=== PATIENT | male | born 1985 | race Caucasian/White ===

== ENCOUNTER 2020-01-11 18:57 | Emergency (ER) | payer BC, SELFPAY ==
[2020-01-11 18:58] VITALS: BP 105/66; PULSE 53; RESP 18; TEMP 36.2; O2SAT 100
[2020-01-11] MEDS: TETANUS,DIPHTHERIA,AC PERTUSSIS ADULT (0.5 ML) BOOSTRIX IM (19:30)
[2020-01-11] MEDS: LIDOCAINE HCL 1% LOCAL INJ 20 ML VIAL (19:48)
--- NOTE | 2020-01-11 19:51 | ED.WOUNDLAC ---
HPI - Wound/Laceration General Chief Complaint: Wound/Laceration Stated Complaint: Busted my finger up Time Seen by Provider: 01/11/20 19:20 Source: patient Mode of arrival: ambulatory Limitations: no limitations History of Present Illness HPI narrative: Patient is a 34-year-old male who presents to emergency department for evaluation of laceration of the right thumb patient was using sheet-metal when he lacerated the thumb patient notes his tetanus is not up-to-date patient notes mild aching pain worse with touch and activity. Related Data Allergies Allergy/AdvReac Type Severity Reaction Status Date / Time amoxicillin Allergy Mild unknown Verified 10/21/18 11:23 Review of Systems Review of Systems: Narrative: CONSTITUTIONAL: Denies fever, chills, or sweats. SKIN: Positive for laceration MUSCULOSKELETAL: Denies decreased range of motion or strength NEUROLOGIC: Denies numbness or tingling PMFSH Social History Social History (Updated 01/11/20 @ 19:53 by Jethro Larson PA-C) Smoking status: Never smoker Exam Narrative: Exam Narrative: GENERAL: Well-appearing, well-nourished, and in no acute distress. HEAD: Normocephalic, atraumatic. EYES: PERRLA and EOMI. ENT: Nares clear, no rhinorrhea or epistaxis. Mucous membranes moist. EXTREMITIES: Normal range of motion. No edema. SKIN: Warm, dry, no rash. 2 cm laceration of the right thumb dorsal surface superficial and linear NEURO: No focal deficits. Alert and oriented x3. Neurovascularly intact PSYCH: Normal mood and affect. Course Course Emergency Course: Patient in the room in no distress aware of case findings treatment plan and diagnosis Vital Signs Vital signs: Vital Signs Temperature 97.1 F L 01/11/20 18:58 Pulse Rate 53 L 01/11/20 18:58 Respiratory Rate 18 01/11/20 18:58 Blood Pressure 105/66 01/11/20 18:58 Pulse Oximetry 100 01/11/20 18:58 Temperature 97.1 F L 01/11/20 18:58 Pulse Rate 53 L 01/11/20 18:58 Respiratory Rate 18 01/11/20 18:58 Blood Pressure 105/66 01/11/20 18:58 Pulse Oximetry 100 01/11/20 18:58 Procedures Laceration Laceration 1: Date: 01/11/20 Time: 19:54 Site: upper extremity Side (If applicable): right Size (cm): 2 Description: linear Depth: simple, single layer Local Anesthetic: lidocaine 1% Pre-repair: wound explored, irrigated and irrigated extensively ====== Skin Level ====== Skin layer closed with: nylon Size (cm): 4-0 Number of sutures: 4 ====== Subcutaneous Layer ====== ====== Muscle Layer ====== ====== Tendon Layer ====== MDM - Wound/Laceration MDM Narrative Medical decision making narrative: Patients injury or pain is consistent with musculoskeletal etiology. No signs of neurological or vascular compromise on exam. Compartments and tisues are soft without signs of compartment syndrome. Pain is felt appropriate for further evaluation on an outpatient basis. Discharge Plan Discharge Clinical Impression: Laceration Patient Disposition: Home, Self-Care Condition: Stable Instructions: Antibiotic Form, Laceration (ED) Additional Instructions: Keep wound clean and dry. Do not soak, take baths, or swim until wound is completely healed. If any signs of infection such as redness, swelling, increasing pain, drainage of purulent discharge, streaks up your extremity develop, seek medical attention immediately. Followup with your primary care provider in [7] days for suture removal. [] Follow-up/Referrals: PHYSICIAN,LABORER WHARF [Primary Care Provider] - Medina Snyder MD [Physician] - Stand Alone Forms: Work/School Release IP
== END 2020-01-11 20:15 | disposition home or self-care (01) ==
PROVIDERS: Emergency Provider Emergency Medicine
DX: S61.011A Laceration without foreign body of right thumb without damage to nail, initial encounter (principal); Z23 Encounter for immunization; W26.8XXA Contact with other sharp object(s), not elsewhere classified, initial encounter
CPT/HCPCS: 10061; 12001; 90471; 90715; 99282

== ENCOUNTER 2024-08-28 17:51 | Emergency (ER) | payer SELFPAY ==
[2024-08-28 18:08] VITALS: BP 124/74; PULSE 85; RESP 16; TEMP 36.2; O2SAT 99
[2024-08-28 18:26] LABS: EDCOVIDSCREEN Negative (Negative); EDINFLUASCREEN Negative (Negative); EDINFLUBSCREEN Negative (Negative)
--- NOTE | 2024-08-28 18:30 | ED.GENADULT ---
HPI - General Adult General Chief complaint: Upper Respiratory Infection Stated complaint: LOW BACK PAIN/FREQUENT URINATION/SORE THROAT/SINUS Time Seen by Provider: 08/28/24 18:19 Source: patient and RN notes reviewed Mode of arrival: ambulatory Limitations: no limitations History of Present Illness HPI narrative: Patient presents today with a 3 day history nasal congestion, decreased appetite, fatigue, a 2 day history of urinary frequency and dysuria, and sweats with right-sided flank pain since last night. Denies cough, sore throat, fever. No [id number] treatment prior to arrival. Denies shortness of breath or chest pain. Related Data Home Medications ?Medication ?Instructions ?Recorded ?Confirmed ?Last Taken ?Type No Home Medications 08/28/24 08/28/24 Unknown History Allergies Allergy/AdvReac Type Severity Reaction Status Date / Time amoxicillin Allergy Mild unknown Verified 08/28/24 18:08 Review of Systems Review of Systems: CONSTITUTIONAL: Denies body aches, fever, chills. + sweats, fatigue EYES: Denies visual changes, redness, or discharge. ENT: Denies rhinorrhea, sore throat, or otalgia.+ congestion CARDIOVASCULAR: Denies chest pain, palpitations, or edema. RESPIRATORY: Denies cough or dyspnea. GASTROINTESTINAL: Denies abdominal pain, nausea, vomiting, or diarrhea.+ decreased appetite, right flank pain GENITOURINARY: Denies dysuria or hematuria. SKIN: Denies rash, itching, or wounds. MUSCULOSKELETAL: Denies back pain, joint pain, or myalgia. NEUROLOGIC: Denies headache, numbness, tingling, or weakness. PSYCH: Denies depression or anxiety. PMFSH Social History Social History Smoking status: Never smoker Comments At time of signature, I have reviewed and agree with nursing past medical, surgical, social and family history unless otherwise noted. Please see nursing chart for further information. There is no relevant family history pertinent to the presenting complaint Exam Narrative: GENERAL: Well-appearing, well-nourished, and in no acute distress. HEAD: Normocephalic, atraumatic. EYES: No redness or drainage. Conjunctivae normal. ENT: Mucous membranes pink and moist. Nares mildly congested. Bilateral nasal turbinates are erythematous and mildly edematous with rhinorrhea. Deviated septum. TMs normal bilaterally. Throat normal. Uvula midline. NECK: Normal AROM. Supple. No lymphadenopathy. CHEST: No respiratory distress. Clear to auscultation. HEART: Regular rate and rhythm. No murmur appreciated. Normal peripheral pulses. ABDOMEN: Soft, nontender, nondistended, normal active bowel sounds. + right CVAT EXTREMITIES: Normal range of motion. No edema. SKIN: Warm, dry, no rash. Capillary refill normal. Normal skin turgor. NEURO: No focal deficits. Alert and oriented x3. Gait steady. PSYCH: Normal affect. No signs of depression or anxiety. Course Course Level of Care: Express Care Visit Vital Signs Vital signs: Vital Signs Temperature 97.1 F L 08/28/24 18:08 Pulse Rate 85 08/28/24 18:08 Respiratory Rate 16 08/28/24 18:08 Blood Pressure 124/74 08/28/24 18:08 Pulse Oximetry 99 08/28/24 18:08 Temperature 97.1 F L 08/28/24 18:08 Pulse Rate 85 08/28/24 18:08 Respiratory Rate 16 08/28/24 18:08 Blood Pressure 124/74 08/28/24 18:08 Pulse Oximetry 99 08/28/24 18:08 Reviewed Medical Decision Making MDM Narrative Medical decision making narrative: COVID and influenza negative. Urinalysis shows protein and ketones, but is otherwise negative. Discussed with patient his urine sample as well as his urinary symptoms and flank tenderness, recommend ER transfer for further evaluation. Patient declines and states he would just like his congestion taking care of with an antibiotic. Discussed that his symptoms are likely due to an upper respiratory viral illness at this time and suggested symptom control. Patient states that he cannot use nasal sprays or Sudafed due to various reasons. Anticipatory guidance given. ED precautions given. Differential Diagnosis Differential Diagnosis: UTI, kidney stone, URI, COVID, influenza Vital Signs Vital Signs: Vital Signs Temperature 97.1 F L 08/28/24 18:08 Pulse Rate 85 08/28/24 18:08 Respiratory Rate 16 08/28/24 18:08 Blood Pressure 124/74 08/28/24 18:08 Pulse Oximetry 99 08/28/24 18:08 Temperature 97.1 F L 08/28/24 18:08 Pulse Rate 85 08/28/24 18:08 Respiratory Rate 16 08/28/24 18:08 Blood Pressure 124/74 08/28/24 18:08 Pulse Oximetry 99 08/28/24 18:08 Lab Data Lab results reviewed: Yes I reviewed the patient's lab results. Labs: Lab Results 08/28/24 08/28/24 Range/Units 18:25 18:36 POC Urine Color Yellow POC Urine Clarity Clear POC Urine pH 7.0 POC Ur Specif [place] 1.020 POC Urine Protein 1+ (Negative) POC Ur Glucose (UA) Negative (Negative) POC Urine Ketones 2+ (Negative) POC Urine Blood Negative (Negative) POC Urine Nitrite Negative (Negative) POC Urine Bilirubin Negative (Negative) POC Urine Urobilinogen 0.2 POC U Leukocyte Esteras Negative (Negative) POC Influenza A Ag Negative (Negative) POC Influenza B Ag Negative (Negative) POC SARS CoV-2 Ag Negative (Negative) Critical Care Time Critical Care Time Critical Care Time: No Discharge Plan Discharge Clinical Impression: Acute right flank pain Upper respiratory infection Qualifiers: URI type: unspecified URI Qualified Code(s): J06.9 - Acute upper respiratory infection, unspecified Patient Disposition: Home, Self-Care Condition: Stable Instructions: Upper Respiratory Infection (DC), Flank Pain (ED) Additional Instructions: Your COVID-19 and influenza swabs are negative today. Your symptoms are likely due to a viral illness, which is not treated with antibiotics. Virus symptoms can last for up to 7-10days. Take Tylenol or ibuprofen for pain or fever. You can consider a nasal spray such as Flonase or saline. You can also consider an [id number] medication such as Sudafed or Coricidin HBP or Mucinex. Rest and stay hydrated. Follow up with your PCP in 7 days if symptoms are not improving. Go to the ER immediately if you develop shortness of breath, difficulty swallowing, or any other concerning symptoms. You have declined transfer to the ER for further evaluation of your flank pain and urinary symptoms. If these symptoms worsen to include worsening back pain, pain when you urinate, blood in your urine, fever, please go to the ER for further evaluation. Your blood pressure was elevated above 120/80 today at Urgent Care. This puts you above the threshold for follow up. Please schedule a followup visit with your personal physician as soon as possible, for further evaluation and treatment. Even blood pressure exceeding 120/80 may indicate pre-hypertension. Patient Language: Arabic Prescriptions: No Action No Home Medications Follow-up/Referrals: PHYSICIAN,PRINCIPAL NETWORK ENGINEER [Primary Care Provider] - Stand Alone Forms: Work/School Release IP Time of Disposition: 18:53
[2024-08-28 18:38] LABS: EDUAAPPEAR Clear; EDUABILI Negative (Negative); EDUABLOOD Negative (Negative); EDUACOLOR1 Yellow; EDUAGLUCOSE Negative (Negative); EDUAKETONE 2+ (Negative); EDUALEUKO Negative (Negative); EDUANITRATE Negative (Negative); EDUAPROTEIN 1+ (Negative); EDUAUROBILI 0.2
== END 2024-08-28 18:58 | disposition home or self-care (01) ==
PROVIDERS: Emergency Provider Nurse Practitioner
DX: R10.9 Unspecified abdominal pain (principal); J06.9 Acute upper respiratory infection, unspecified; Z20.822 Contact with and (suspected) exposure to COVID-19
CPT/HCPCS: 81003; 87426; 87804; 99213; G0463